=== PATIENT | female | born 1995 | race Caucasian/White ===

== ENCOUNTER → 2020-11-03 10:26 | Outpatient (CLI) | payer OTHER, SELFPAY ==
--- NOTE | 2020-11-03 10:29 | DI.RAD.S_ITS ---
PROCEDURE: XR SHOULDER RT MIN 2V INDICATIONS: possible dislocation with self reduction TECHNIQUE: 3 views of the shoulder were acquired. COMPARISON: None. FINDINGS: Bones: No fractures or dislocations. No suspicious bony lesions. Visualized ribs appear intact. Soft tissues: No suspicious soft tissue calcifications. IMPRESSION: No fracture. No osseous lesion. If symptoms and/or clinical suspicion for pathology persists, further assessment with repeat radiographs (7-10 days) or advanced imaging (e.g. CT, MRI or bone scan) should be considered. Dictated by: Genny Patel MD, PhD on 11/03/2020 at 10:47 Approved by: Genny Patel MD, PhD on 11/03/2020 at 10:47
== END ==
PROVIDERS: Referring Provider Physician Assistant; Visit Provider Physician Assistant
DX: M25.511 Pain in right shoulder (principal)
CPT/HCPCS: 73030